=== PATIENT | male | born 1940 | race Caucasian/White ===

== ENCOUNTER 2016-07-15 17:53 | Inpatient (IN) | payer MEDICARE ==
[~2016-07-15] VITALS: Ht 180.3 cm; Wt 124.0 kg
[2016-07-15] VITALS (7 sets, daily range): BP systolic 125–159; BP diastolic 78–103; PULSE 121–140; RESP 16–22; TEMP 97.9; O2SAT 88–96
[~2016-07-15 17:53] MED LIST: AMIO200T PO; APIX5TAB PO; BUME1TAB26 PO; CENTTAB PO; METO25TA6 PO; OXYGENTANK NAS.CANULA; PRAV40TA2 PO; TAMS0.4C4 PO; ZOLP5TAB3 PO; ZOVI400T PO
[2016-07-15] MEDS ORDERED: SODIUM CHLORIDE 0.9% FLUSH 5 ML FLUSH IVF PRN ×2 (18:15→20:30)
[2016-07-15] MEDS ORDERED: DILTIAZEM HCL 25 MG/5 ML VIAL IV ONE (18:15)
--- NOTE | 2016-07-15 18:24 | PD ---
HPI Chief Complaint: GI Complaint Time Seen by Provider: 18:06 Travel History International Travel<30 days: No Contact w/Intl Traveler<30days: No Traveled to known affect area: No History of Present Illness HPI 75yo M with PMH of afib on eliquis and metoprolol, CHF, lymphoma on chemotherapy (follows with Dr. Moncada), HTN, HLD, BPH presents to the ED with c/o abdominal pain for about 3 days. Pt points to periumbilical region, states it is constant. Pt has not had bowel movement for 3 days. Denies any fever, cough , chest pain, sob, n/v. As per EVAC, pt is hypoxic on RA. PFSH Past Medical History Hx Anticoagulant Therapy: Yes Arthritis: Yes Anxiety: No Depression: No Heart Rhythm Problems: No Cancer: Yes (LYMPHOMA currently on chemo) Cardiovascular Problems: Yes High Cholesterol: Yes Chemotherapy: Yes (t//) Chest Pain: Yes (earlier today) Congestive Heart Failure: Yes Diminished Hearing: No Endocrine: No Gastrointestinal Disorders: Yes (Upper gi discomfort on admission) Genitourinary: No Hypertension: Yes Immune Disorder: Yes (lymphoma ca on chemo now) Implanted Vascular Access Dvce: Yes Musculoskeletal: No Neurologic: No Psychiatric: No Reproductive: Yes (chemo for prostrate ca t//) Respiratory: Yes Sleep Apnea: Yes (cpap at hs at home) PNEUMOCCOCAL Vaccine (Year): 1 Past Surgical History Abdominal Surgery: No Body Medical Devices: RAQUEL EYE LENS Cardiac Surgery: No Ear Surgery: No Endocrine Surgery: No Eye Surgery: Yes (BILATERAL CATARACTS) Genitourinary Surgery: Yes (VASCETOMY) Neurologic Surgery: No Oral Surgery: No Pacemaker: No Thoracic Surgery: No Other Surgery: Yes ("really young" 2006 hip replacement L) Social History Alcohol Use: No Tobacco Use: No Substance Use: No Allergies-Medications (Allergen,Severity, Reaction): Coded Allergies: No Known Allergies (Verified , 07/15/16) Reported Meds & Prescriptions Reported Meds & Active Scripts Active Amiodarone (Amiodarone HCl) 200 Mg Tab 200 Mg PO BID Oxygen tank (Oxygen) 1 Ea Tank 2 Liter MAXIME.CANULA CONTINUOUS Oxygen Concentrator Portable Gaseous 2 L/min via Nasal Cannula Continuous For 99 months Reported Zolpidem (Zolpidem Tartrate) 5 Mg Tab 5 Mg PO HS Tamsulosin (Tamsulosin HCl) 0.4 Mg Cap 0.4 Mg PO HS Pravastatin 40 Mg Tab 40 Mg PO HS Metoprolol Succinate ER 24 HR (Metoprolol Succinate) 25 Mg Tab 25 Mg PO DAILY Eliquis (Apixaban) 5 Mg Tab 5 Mg PO BID Centrum Silver (Multiple Vitamins W/ Minerals) 1 Tab 1 Tab PO DAILY Bumex (Bumetanide) 1 Mg Tab 1 Mg PO DAILY Zovirax (Acyclovir) 400 Mg Tab 400 Mg PO BID Review of Systems Except as stated in HPI: all other systems reviewed are Neg Physical Exam Narrative GENERAL: 75yo M in mild distress. SKIN: Warm and dry. HEAD: Atraumatic. Normocephalic. EYES: Pupils equal and round. No scleral icterus. No injection or drainage. ENT: No nasal bleeding or discharge. Mucous membranes pink and moist. NECK: Trachea midline. No JVD. CARDIOVASCULAR: Tachycardic, irregular. RESPIRATORY: + accessory muscle use. Breath sounds equal bilaterally. GASTROINTESTINAL: Abdomen soft, +RUQ ttp. No rebound tenderness or guarding. MUSCULOSKELETAL: No obvious deformities. No clubbing. No cyanosis. +Bilateral lower ext edema. Left hip: Unable to lift left leg from hip. Pt had history of hip replacement on left before. DP 2+ bilaterally. NEUROLOGICAL: Awake and alert. No obvious cranial nerve deficits. Motor grossly within normal limits. Normal speech. PSYCHIATRIC: Appropriate mood and affect; insight and judgment normal. Data Data Last Documented VS Vital Signs Date Time Temp Pulse Resp B/P Pulse Ox O2 Delivery O2 Flow Rate FiO2 07/15/16 20:00 126 20 140/95 96 Nasal Cannula 4 07/15/16 17:58 97.9 Orders Basic Metabolic Panel (Bmp) (07/15/16 18:09) Complete Blood Count With Diff (07/15/16 18:09) Lipase (07/15/16 18:09) Lactic Acid (07/15/16 18:09) Prothrombin Time / Inr (Pt) (07/15/16 18:09) Act Partial Throm Time (Ptt) (07/15/16 18:09) Urinalysis - C+S If Indicated (07/15/16 18:09) Ct Abd/Pel W Iv Contrast(Rout) (07/15/16 18:09) Iv Access Insert/Monitor (07/15/16 18:09) Ecg Monitoring (07/15/16 18:09) Oximetry (07/15/16 18:09) Sodium Chloride 0.9% Flush (Ns Flush) (07/15/16 18:15) Diltiazem Inj (Cardizem Inj) (07/15/16 18:15) Metoprolol Tartrate Inj (Lopressor Inj) (07/15/16 18:45) Hip, Uni(Ap&Lat) W Ap Pelvis (07/15/16 ) B-Type Natriuretic Peptide (07/15/16 18:51) Hepatic Functional Panel (07/15/16 19:01) Chest, Single Ap (07/15/16 ) Troponin I (07/15/16 19:25) Iohexol 350 Inj (Omnipaque 350 Inj) (07/15/16 19:35) Arterial Blood Gas (Abg) (07/15/16 ) Ct Brain W/O Iv Contrast(Rout) (07/15/16 19:52) Sodium Chlor 0.9% 250 Ml Inj (Ns 250 Ml (07/15/16 20:00) Ceftriaxone Inj (Rocephin Inj) (07/15/16 20:30) Azithromycin Inj (Zithromax Inj) (07/15/16 20:30) Diltiazem Inj (Cardizem Inj) (07/15/16 20:30) Sodium Chloride 0.9% Flush (Ns Flush) (07/15/16 20:30) Aspirin Chew (Aspirin Chew) (07/15/16 20:30) Nitroglycerin 2% Oint (Nitroglycerin 2% (07/15/16 20:30) Admit Order (Ed Use Only) (07/15/16 20:52) Labs Laboratory Tests Test 07/15/16 07/15/16 07/15/16 03:00 18:22 19:50 Urine Color YELLOW Urine Turbidity CLEAR Urine pH 6.0 Urine Specific [place] GREATER THAN 1.050 Urine Protein 100 mg/dL Urine Glucose (UA) NEG mg/dL Urine Ketones 10 mg/dL Urine Occult Blood MOD Urine Nitrite NEG Urine Bilirubin NEG Urine Urobilinogen 4.0 MG/DL Urine Leukocyte Esterase NEG Urine RBC 9 /hpf Urine WBC 7 /hpf Urine Squamous Epithelial <1 /hpf Cells Urine Hyaline Casts 4 /lpf Urine Mucus FEW /lpf Microscopic Urinalysis Comment CULT NOT INDICATED White Blood Count 13.7 TH/MM3 Red Blood Count 4.54 MIL/MM3 Hemoglobin 13.6 GM/DL Hematocrit 41.4 % Mean Corpuscular Volume 91.2 FL Mean Corpuscular Hemoglobin 29.9 PG Mean Corpuscular Hemoglobin 32.8 % Concent Red Cell Distribution Width 15.2 % Platelet Count 120 TH/MM3 Mean Platelet Volume 9.7 FL Neutrophils (%) (Auto) 82.0 % Lymphocytes (%) (Auto) 5.1 % Monocytes (%) (Auto) 12.8 % Eosinophils (%) (Auto) 0.0 % Basophils (%) (Auto) 0.1 % Neutrophils # (Auto) 11.2 TH/MM3 Lymphocytes # (Auto) 0.7 TH/MM3 Monocytes # (Auto) 1.7 TH/MM3 Eosinophils # (Auto) 0.0 TH/MM3 Basophils # (Auto) 0.0 TH/MM3 CBC Comment DIFF FINAL Differential Comment Prothrombin Time 13.3 SEC Prothromb Time International 1.2 RATIO Ratio Activated Partial 32.1 SEC Thromboplast Time Sodium Level 140 MEQ/L Potassium Level 3.4 MEQ/L Chloride Level 102 MEQ/L Carbon Dioxide Level 26.9 MEQ/L Anion Gap 11 MEQ/L Blood Urea Nitrogen 15 MG/DL Creatinine 0.95 MG/DL Estimat Glomerular Filtration 77 ML/MIN Rate Random Glucose 113 MG/DL Lactic Acid Level 1.7 mmol/L Calcium Level 8.4 MG/DL Total Bilirubin 1.1 MG/DL Direct Bilirubin 0.4 MG/DL Indirect Bilirubin 0.7 MG/DL Aspartate Amino Transf 29 U/L (AST/SGOT) Alanine Aminotransferase 22 U/L (ALT/SGPT) Alkaline Phosphatase 85 U/L Troponin I 0.02 NG/ML B-Type Natriuretic Peptide 205 PG/ML Total Protein 6.7 GM/DL Albumin 2.2 GM/DL Lipase 114 U/L Blood Gas Puncture Site RT RADIAL Blood Gas Patient Temperature 98.6 Blood Gas HCO3 26 mmol/L Blood Gas Base Excess 2.5 mmol/L Blood Gas Oxygen Saturation 88 % Arterial Blood pH 7.45 Arterial Blood Partial 38 mmHg Pressure CO2 Arterial Blood Partial 58 mmHG Pressure O2 Arterial Blood Oxygen Content 17.0 Vol % Arterial Blood 2.3 % Carboxyhemoglobin Arterial Blood Methemoglobin 2.2 % Blood Gas Hemoglobin 13.7 G/DL Oxygen Delivery Device NASAL CANNULA Blood Gas Liter Flow 4 L/M [facility] Medical Decision Making Medical Screen Exam Complete: Yes Emergency Medical Condition: Yes Interpretation(s) EKG: Afib with RVR 142bpm. Normal axis. Q wave V1, V2. Differential Diagnosis Abd pain: Cholecystitis vs. pancreatitis vs. mesenteric ischemia vs. constipation vs. colitis vs. UTI vs. obstruction Hypoxemia: Afib vs. PNA vs. CHF exacerbation Narrative Course 75yo M with abdominal pain and no BM for 3 days. Pt has been noncompliant with his medications for 3 days. He also states he has frequent falls but denies any LOC and is a poor historian. Pt is in afib RVR so cardizem 20mg IV initially given. BP stable. HR came down to 110 but did not last long. Pt is on metoprolol at home and has CHF so will give lopressor 2.5mg IV instead. Labs reviewed, mild leukocytosis at 13.7. Lactic acid 1.7. Lipase 114. Rest of labs pending. Sign out to next to follow up rest of results, imaging and admit. Diagnosis Primary Impression: Atrial fibrillation with RVR Admitting Information Admitting Physician Requests: Admit Kirsten Mckoy DO Jul 15, 2016 18:24
[2016-07-15] MEDS ORDERED: METOPROLOL TARTRATE 5 MG/5 ML VIAL IV PUSH ONE (18:45)
[2016-07-15 18:46] LABS: AUTOMATED NEUTROPHIL # 11.2 TH/MM3 (1.8-7.7); BASOPHIL % 0.1 % (0.0-2.0); HEMATOCRIT 41.4 % (39.0-51.0); HEMO FLAGS DIFF FINAL; LYMPH % 5.1 % (9.0-44.0); LYMPHOCYTE # 0.7 TH/MM3 (1.0-4.8); MEAN CELL VOLUME 91.2 FL (80.0-100.0); MEAN CORPUSCULAR HEMOGLOBIN 29.9 PG (27.0-34.0); MEAN CORPUSCULAR HGB CONC 32.8 % (32.0-36.0); MONO % 12.8 % (0.0-8.0); PLATELET COUNT 120 TH/MM3 (150-450); RED BLOOD COUNT 4.54 MIL/MM3 (4.50-5.90); RED CELL DISTRIBUTION WIDTH 15.2 % (11.6-17.2); WHITE BLOOD COUNT 13.7 TH/MM3 (4.0-11.0)
[2016-07-15 19:02] LABS: APTT (PATIENT) 32.1 SEC (24.3-30.1); INTERNATIONAL NORMALIZED RATIO 1.2 RATIO; PROTHROMBIN TIME - PATIENT 13.3 SEC (9.8-11.6)
[2016-07-15 19:06] LABS: BICARBONATE 26.9 MEQ/L (21.0-32.0); POTASSIUM 3.4 MEQ/L (3.5-5.1)
[2016-07-15] MEDS ORDERED: IOHEXOL 350 MG/ML 10 ML VIAL (for RAD DIAG) IV ONE (19:35)
--- NOTE | 2016-07-15 19:42 | PD ---
Physical Exam Narrative General: The patient is well-developed well-nourished male in no acute distress. Head and Neck exam: Head is normocephalic atraumatic. Eyes: Pupils are equal round and reactive to light. Nose: Midline septum with pink mucous membranes Mouth: Dentition unremarkable. Moist mucus membranes. Posterior oropharynx is not erythematous. No tonsillar hypertrophy. Uvula midline. Airway patent. Neck: No palpable lymphadenopathy. No nuchal rigidity. No thyromegaly. Cardiovascular: Irregularly irregular with a rate in the 120s without murmurs, gallops, or rubs. He has intermittent pulse deficit to his radial artery on simultaneous auscultation and palpation consistent with his history of A. fib. Lungs: Clear to auscultation on the right, however on the left he has crackles audible. The patient has an older appearing bruise in place in the anterior upper left chest. There is no crepitus or step-off. No tenderness on palpation. No flail segment. Abdomen: Soft, without tenderness to palpation in all 4 quadrants of the abdomen. No guarding, rebound, or rigidity. Normal bowel sounds are audible Extremities: No clubbing, cyanosis, or edema. 2+ pulses in all 4 extremities. No calf tenderness on palpation. Neurologic Exam: Grossly nonfocal. Data Data Last Documented VS Vital Signs Date Time Temp Pulse Resp B/P Pulse Ox O2 Delivery O2 Flow Rate FiO2 07/15/16 20:00 126 20 140/95 96 Nasal Cannula 4 07/15/16 17:58 97.9 Orders Basic Metabolic Panel (Bmp) (07/15/16 18:09) Complete Blood Count With Diff (07/15/16 18:09) Lipase (07/15/16 18:09) Lactic Acid (07/15/16 18:09) Prothrombin Time / Inr (Pt) (07/15/16 18:09) Act Partial Throm Time (Ptt) (07/15/16 18:09) Urinalysis - C+S If Indicated (07/15/16 18:09) Ct Abd/Pel W Iv Contrast(Rout) (07/15/16 18:09) Iv Access Insert/Monitor (07/15/16 18:09) Ecg Monitoring (07/15/16 18:09) Oximetry (07/15/16 18:09) Sodium Chloride 0.9% Flush (Ns Flush) (07/15/16 18:15) Diltiazem Inj (Cardizem Inj) (07/15/16 18:15) Metoprolol Tartrate Inj (Lopressor Inj) (07/15/16 18:45) Hip, Uni(Ap&Lat) W Ap Pelvis (07/15/16 ) B-Type Natriuretic Peptide (07/15/16 18:51) Hepatic Functional Panel (07/15/16 19:01) Chest, Single Ap (07/15/16 ) Troponin I (07/15/16 19:25) Iohexol 350 Inj (Omnipaque 350 Inj) (07/15/16 19:35) Arterial Blood Gas (Abg) (07/15/16 ) Ct Brain W/O Iv Contrast(Rout) (07/15/16 19:52) Sodium Chlor 0.9% 250 Ml Inj (Ns 250 Ml (07/15/16 20:00) Ceftriaxone Inj (Rocephin Inj) (07/15/16 20:30) Azithromycin Inj (Zithromax Inj) (07/15/16 20:30) Diltiazem Inj (Cardizem Inj) (07/15/16 20:30) Sodium Chloride 0.9% Flush (Ns Flush) (07/15/16 20:30) Aspirin Chew (Aspirin Chew) (07/15/16 20:30) Nitroglycerin 2% Oint (Nitroglycerin 2% (07/15/16 20:30) Admit Order (Ed Use Only) (07/15/16 20:52) Labs Laboratory Tests Test 07/15/16 07/15/16 18:22 19:50 White Blood Count 13.7 TH/MM3 Red Blood Count 4.54 MIL/MM3 Hemoglobin 13.6 GM/DL Hematocrit 41.4 % Mean Corpuscular Volume 91.2 FL Mean Corpuscular Hemoglobin 29.9 PG Mean Corpuscular Hemoglobin 32.8 % Concent Red Cell Distribution Width 15.2 % Platelet Count 120 TH/MM3 Mean Platelet Volume 9.7 FL Neutrophils (%) (Auto) 82.0 % Lymphocytes (%) (Auto) 5.1 % Monocytes (%) (Auto) 12.8 % Eosinophils (%) (Auto) 0.0 % Basophils (%) (Auto) 0.1 % Neutrophils # (Auto) 11.2 TH/MM3 Lymphocytes # (Auto) 0.7 TH/MM3 Monocytes # (Auto) 1.7 TH/MM3 Eosinophils # (Auto) 0.0 TH/MM3 Basophils # (Auto) 0.0 TH/MM3 CBC Comment DIFF FINAL Differential Comment Prothrombin Time 13.3 SEC Prothromb Time International 1.2 RATIO Ratio Activated Partial 32.1 SEC Thromboplast Time Sodium Level 140 MEQ/L Potassium Level 3.4 MEQ/L Chloride Level 102 MEQ/L Carbon Dioxide Level 26.9 MEQ/L Anion Gap 11 MEQ/L Blood Urea Nitrogen 15 MG/DL Creatinine 0.95 MG/DL Estimat Glomerular Filtration 77 ML/MIN Rate Random Glucose 113 MG/DL Lactic Acid Level 1.7 mmol/L Calcium Level 8.4 MG/DL Total Bilirubin 1.1 MG/DL Direct Bilirubin 0.4 MG/DL Indirect Bilirubin 0.7 MG/DL Aspartate Amino Transf 29 U/L (AST/SGOT) Alanine Aminotransferase 22 U/L (ALT/SGPT) Alkaline Phosphatase 85 U/L Troponin I 0.02 NG/ML B-Type Natriuretic Peptide 205 PG/ML Total Protein 6.7 GM/DL Albumin 2.2 GM/DL Lipase 114 U/L Blood Gas Puncture Site RT RADIAL Blood Gas Patient Temperature 98.6 Blood Gas HCO3 26 mmol/L Blood Gas Base Excess 2.5 mmol/L Blood Gas Oxygen Saturation 88 % Arterial Blood pH 7.45 Arterial Blood Partial 38 mmHg Pressure CO2 Arterial Blood Partial 58 mmHG Pressure O2 Arterial Blood Oxygen Content 17.0 Vol % Arterial Blood 2.3 % Carboxyhemoglobin Arterial Blood Methemoglobin 2.2 % Blood Gas Hemoglobin 13.7 G/DL Oxygen Delivery Device NASAL CANNULA Blood Gas Liter Flow 4 L/M [facility] Medical Record Reviewed: Yes Supervised Visit with SHARON: No Interpretation(s) Last Impressions Head CT 07/15/161951 Signed Impressions: Service Date/Time: Friday, July 15, 2016 20:31 - CONCLUSION: 1. No acute intracranial abnormalities. Moderate ischemic changes in the periventricular white matter. Ti Cornejo MD Abdomen/Pelvis CT 07/15/[id number] Signed Impressions: Service Date/Time: Friday, July 15, 2016 19:25 - CONCLUSION: 1. Retroperitoneal, mesenteric and pelvic adenopathy as above. There is also extensive stranding of fat in the retroperitoneum extending into the pelvis which can be seen with lymphoma. Retroperitoneal hemorrhage considered less likely. Aorta is atherosclerotic but intact without aneurysm. 2. Adenopathy is a new finding since the 2010 exam. 3. Loculated fluid and pleural thickening left lung base. 4. Probable gallstones in gallbladder. Small pericardial effusion. 5. Previous left hip replacement. Ti Cornejo MD Hip and Pelvis X-Ray 07/15/16 0000 Signed Impressions: Service Date/Time: Friday, July 15, 2016 19:19 - CONCLUSION: 1. Previous total left hip replacement. No acute findings. Ti Cornejo MD Chest X-Ray 07/15/16 0000 Signed Impressions: Service Date/Time: Friday, July 15, 2016 19:11 - CONCLUSION: 1. There is new airspace consolidation in the left lung especially left perihilar region and left base compared with May 2016. Right lung remains relatively clear. Differential diagnosis includes aspiration and pneumonia. Ti Cornejo MD Differential Diagnosis A. fib with RVR, versus sepsis, versus COPD exacerbation, versus congestive heart failure exacerbation, versus electrolyte abnormality Narrative Course During the course of the patients emergency department visit, the patients history, examination, and differential diagnosis were reviewed with the patient. The patient had IV access obtained and blood work sent for analysis. The patient was placed on a executive administrator with oximetry and blood pressure monitoring. The patient had an EKG done that confirmed atrial fibrillation with RVR. The patient was initially seen by Dr. Mckoy. The case was turned over to me at the conclusion of her shift. Chest x-ray, pelvic x-ray and left hip x- ray, CT scan of the abdomen and pelvis has been ordered. The patient was provided by Dr. Mckoy, 20 g of diltiazem, however the patient had minimal response, therefore she gave metoprolol 2.5 mg IV. The patients laboratory studies were reviewed and remarkable for a white count of 13.7, hemoglobin 13.6, platelets 120 with 82 neutrophils, lymphocytes 5.1, monocytes 12.8. Basic metabolic profile is remarkable for potassium of 3.4, glucose 113, lactic acid 1.7, lipase 117, INR 1.2. Lactic acid is 1.7, total bilirubin 1.1, direct bilirubin 0.4, LFTs otherwise unremarkable. BNP is 205, Troponin I 0.02. Radiology studies were reviewed and remarkable for a chest x-ray showed a left- sided lung infiltrate. CT scan of the brain shows no acute abnormality. Hip x- ray and pelvis x-ray shows a left hip replacement, no other acute abnormality. CT scan of the abdomen and pelvis shows retroperitoneal, mesenteric, pelvic adenopathy consistent with his prior history of lymphoma. The patient's heart rate continued be elevated and the patient was started on a Cardizem drip. The patient reported having chest pain and was given aspirin 162 mg by mouth 1, nitroglycerin 1 inch to the chest wall. Repeat EKG shows atrial fibrillation, no other acute abnormality. Given the patient's infiltrate on chest x-ray the patient was started on Rocephin 1 g IV, 8 azithromycin 500 mg IV. Blood cultures 2 were drawn. The patients results were discussed with the patient, including the plan of care. I explained that further testing and/ or monitoring is indicated based on the patients history, examination, and/ or laboratory findings. Therefore, I recommended admission for additional evaluation. The patient expressed understanding and was agreeable with this plan. The patient was admitted to the hospital in guarded condition and [facility] Critical Care Narrative Aggregate critical care time was 35 minutes. Time to perform other separately billable procedures was not included in the critical care time. My time did not include minutes spent treating any other patients simultaneously or on activities that did not directly contribute to the patient's treatment. The services I provided to this patient were to treat and/or prevent clinically significant deterioration that could result in: Cardiovascular collapse, versus respiratory failure I provided critical care services requiring my management, as noted below: Chart data review, documentation time, medication orders and management, vital sign assessments/reviewing monitor data, ordering and reviewing lab tests, ordering and interpreting/reviewing x-rays and diagnostic studies, care of the patient and discussion of the patient with the admitting physicians. Sepsis Criteria SIRS Criteria (2 or more): Heart rate over 90, RR > 20 or PaCO2 < 32, WBC > 33147, < 4000 or > 10% bands Diagnosis Primary Impression: Atrial fibrillation with RVR Additional Impressions: Hypoxemia Abdominal pain Qualified Code: R10.33 - Periumbilical abdominal pain CAP (community acquired pneumonia) Admitting Information Admitting Physician Requests: Admit Mini Tijerina MD Jul 15, 2016 19:41
[2016-07-15 19:46] LABS: INDIRECT BILIRUBIN 0.7 MG/DL (0.0-0.8); TOTAL BILIRUBIN ADULT 1.1 MG/DL (0.2-1.0)
[2016-07-15] MEDS ORDERED: SODIUM CHLOR 0.9% 250 ML INJ 250 ML IV ONE (20:00)
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
--- NOTE | 2016-07-15 20:15 | RADRPT ---
EXAM DATE/TIME: 07/15/2016 19:25 [facility] COMPARISON: CT ABDOMEN & PELVIS W/O CONTRAST, May 28, 2011, 19:06. INDICATIONS : Diffuse abdomen pain for one month. IV CONTRAST: 70 cc Omnipaque 350 (iohexol) IV ORAL CONTRAST: No oral contrast ingested. RADIATION DOSE: 14.68 CTDIvol (mGy) MEDICAL HISTORY : Lymphoma. Hypertension. SURGICAL HISTORY : None. ENCOUNTER: Initial ACUITY: 1 month PAIN SCALE: 5/10 LOCATION: Bilateral abdomen TECHNIQUE: Volumetric scanning of the abdomen and pelvis was performed. Using automated exposure control and ad justment of the mA and/or kV according to patient size, radiation dose was kept as low as reasonably achievable to obtain optimal diagnostic quality images. FINDINGS: Comparison is 2010. There history of lymphoma. There is a small left effusion which appears to be loc ulated. There is left-sided pleural thickening and some atelectasis at the left base. No acute findings in the liver or spleen. Probable sludge or gallstones within the gallbladder. No ac [place] findings in the adrenals and kidneys. Right renal cyst increased in size from 2011. The retroperitoneum is abnormal. There are multiple enlarged lymph nodes in the periaortic and perica kobi region measuring up to about 1.9 cm in diameter. There is also extensive retroperitoneal strandin g of fat which can be a finding with lymphoma. Retroperitoneal hemorrhage considered less likely. Aor ta appears intact without aneurysm. There is atherosclerotic change in the aorta and branches. Within the pelvis they are mildly enlarged external iliac lymph nodes bilaterally and mildly prominen t right inguinal lymph nodes. No bowel obstruction. No free air. Colonic diverticula noted. Small fat containing umbilical hernia. CONCLUSION: 1. Retroperitoneal, mesenteric and pelvic adenopathy as above. There is also extensive stranding of f at in the retroperitoneum extending into the pelvis which can be seen with lymphoma. Retroperitoneal hemorrhage considered less likely. Aorta is atherosclerotic but intact without aneurysm. 2. Adenopathy is a new finding since the 2010 exam. 3. Loculated fluid and pleural thickening left lung base. 4. Probable gallstones in gallbladder. Small pericardial effusion. 5. Previous left hip replacement. Ti Cornejo MD on July 15, 2016 at 20:06 Board Certified Radiologist. This report was verified electronically.
[2016-07-15] MEDS ORDERED: AZITHROMYCIN INJ 500 MG in SODIUM CHLOR 0.9% 250 ML INJ 250 ML IV ONE (20:30)
[2016-07-15] MEDS ORDERED: ASPIRIN 81 MG CHEW TAB CHEW ONE (20:30)
[2016-07-15] MEDS ORDERED: cefTRIAXone INJ 1,000 MG in SODIUM CHLORIDE 0.9% INJ 100 ML IV ONE (20:30)
[2016-07-15] MEDS ORDERED: NITROGLYCERIN 2% OINT 1 GM PACKET TOPICAL ONE (20:30)
[2016-07-15] MEDS ORDERED: NALOXONE HCL 0.4 MG/ML AMP IV PRN (21:00)
[2016-07-15] MEDS ORDERED: SODIUM CHLORIDE 0.9% FLUSH 5 ML FLUSH FLUSH PRN (21:00)
--- NOTE | 2016-07-15 21:04 | RADRPT ---
EXAM DATE/TIME: 07/15/2016 20:31 [facility] COMPARISON: No previous studies available for comparison. INDICATIONS : Multiple falls, possible head trauma. RADIATION DOSE: 44.37 CTDIvol (mGy) MEDICAL HISTORY : Lymphoma. Hypertension. SURGICAL HISTORY : None. ENCOUNTER: Initial ACUITY: 1 day PAIN SCALE: 3/10 LOCATION: Bilateral head TECHNIQUE: Multiple contiguous axial images were obtained of the head. Using automated exposure control and adj ustment of the mA and/or kV according to patient size, radiation dose was kept as low as reasonably a chievable to obtain optimal diagnostic quality images. FINDINGS: CEREBRUM: The ventricles are normal for age. No evidence of midline shift, mass lesion, hemorrhage or acute in farction. No extra-axial fluid collections are seen. POSTERIOR FOSSA: The cerebellum and brainstem are intact. The 4th ventricle is midline. The cerebellopontine angle i s unremarkable. EXTRACRANIAL: The visualized portion of the orbits is intact. SKULL: The calvaria is intact. No evidence of skull fracture. CONCLUSION: 1. No acute intracranial abnormalities. Moderate ischemic changes in the periventricular white matter . Ti Cornejo MD on July 15, 2016 at 21:01 Board Certified Radiologist. This report was verified electronically.
[2016-07-15] MEDS: SODIUM CHLORIDE 0.9% FLUSH 5 ML FLUSH FLUSH SCH (21:19)
[2016-07-15] MEDS: DILTIAZEM INJ 125 MG in SODIUM CHLORIDE 0.9% INJ 100 ML IV SCH (21:31)
[2016-07-15 21:50] LABS: BLOOD GAS BASE EXCESS 2.5 mmol/L (-2-2); BLOOD GAS CARBOXYHEMOGLOBIN 2.3 % (0-4); BLOOD GAS HCO3 26 mmol/L (22-26); BLOOD GAS METHEMOGLOBIN 2.2 % (0-2); BLOOD GAS O2 HGB SATURATION 88 % (90-100); BLOOD GAS PCO2 38 mmHg (38-42); BLOOD GAS PO2 58 mmHG (61-120); BLOOD GAS TOTAL HGB 13.7 G/DL (12.0-16.0); CRITICAL VALUE YES; TEMP CORR TO 98.6
[2016-07-15 21:51] LABS: DRAW SITE RT RADIAL; LITER FLOW 4 L/M; NUMBER OF ARTERIAL PUNCTURES 1; OXYGEN DEVICE NASAL CANNULA; STAT YES; ULNAR PULSE PRESENT
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
[2016-07-16] VITALS (15 sets, daily range): BP systolic 104–138; BP diastolic 59–77; PULSE 100–117; RESP 13–22; TEMP 97.3–98.5; O2SAT 90–96
[2016-07-16 01:29] LABS: CKMB 0.6 NG/ML (0.5-3.6)
[2016-07-16] MEDS ORDERED: ZOLPIDEM TARTRATE 5 MG TAB PO ONE (03:15)
[2016-07-16 03:17] LABS: BLOOD, URINE MOD (NEG); COMMENT (UR) CULT NOT INDICATED; CULTURE IF INDICATED CULT NOT INDICATED; GLUCOSE,URINE NEG (NEG); HYALINE CAST, URINE 4 /lpf (RARE); KETONE, URINE 10 mg/dL (NEG); MUCUS URINE FEW /lpf (OCC); NITRITE,URINE NEG (NEG); SQUAMOUS EPITHELIAL CELL URINE <1 /hpf (0-5); URINE COLOR YELLOW (YELLW/STRAW)
[2016-07-16 04:28] LABS: AUTOMATED NEUTROPHIL # 10.7 TH/MM3 (1.8-7.7); BASOPHIL % 0.3 % (0.0-2.0); HEMATOCRIT 36.5 % (39.0-51.0); HEMO FLAGS DIFF FINAL; LYMPH % 4.9 % (9.0-44.0); LYMPHOCYTE # 0.6 TH/MM3 (1.0-4.8); MEAN CELL VOLUME 89.6 FL (80.0-100.0); MEAN CORPUSCULAR HEMOGLOBIN 30.3 PG (27.0-34.0); MEAN CORPUSCULAR HGB CONC 33.9 % (32.0-36.0); MONO % 12.9 % (0.0-8.0); NEUT % 81.9 % (16.0-70.0); PLATELET COUNT 109 TH/MM3 (150-450); RED BLOOD COUNT 4.07 MIL/MM3 (4.50-5.90); RED CELL DISTRIBUTION WIDTH 14.9 % (11.6-17.2); WHITE BLOOD COUNT 13.1 TH/MM3 (4.0-11.0)
[2016-07-16 04:49] LABS: BICARBONATE 26.9 MEQ/L (21.0-32.0); POTASSIUM 3.5 MEQ/L (3.5-5.1)
[2016-07-16] MEDS: DILTIAZEM INJ 125 MG in SODIUM CHLORIDE 0.9% INJ 100 ML IV SCH (06:22)
[2016-07-16] MEDS: SODIUM CHLORIDE 0.9% FLUSH 5 ML FLUSH FLUSH SCH ×2 (08:37→22:14)
[2016-07-16] MEDS: AMIODARONE 200 MG TAB PO SCH ×2 (08:46→22:14)
[2016-07-16] MEDS: BUMETANIDE 1 MG TAB PO SCH (08:46)
[2016-07-16] MEDS: METOPROLOL SUCCINATE 25 MG EXTENDED RELEASE TAB PO SCH (08:46)
[2016-07-16] MEDS: APIXABAN 5 MG TABLET PO SCH ×2 (08:46→22:15)
[2016-07-16] MEDS: CEFEPIME INJ 2,000 MG in SODIUM CHLORIDE 0.9% INJ 100 ML IV SCH ×2 (08:59→15:33)
[2016-07-16] MEDS ORDERED: AZITHROMYCIN 250 MG TAB PO SCH (09:00)
[2016-07-16] MEDS: ACYCLOVIR 200 MG CAP PO SCH ×2 (09:27→22:14)
--- NOTE | 2016-07-16 13:39 | EKG ---
Date Performed: 07/15/2016 Time Performed: 20:14:04 PTAGE: 75 years EKG: ATRIAL FIBRILLATION WITH RAPID VENTRICULAR RESPONSE MODERATE INTRAVENTRICULAR CONDUCTION DE LAY ABNORMAL RHYTHM ECG Compared to prior tracing no significant change PREVIOUS TRACING : 07/15/2016 18.03 DOCTOR: France Velazquez Interpretating Date/Time 07/16/2016 13:38:41
--- NOTE | 2016-07-16 13:39 | EKG ---
Date Performed: 07/16/2016 Time Performed: 00:23:53 PTAGE: 75 years EKG: ATRIAL FIBRILLATION WITH RAPID VENTRICULAR RESPONSE MODERATE INTRAVENTRICULAR CONDUCTION DE LAY ABNORMAL RHYTHM ECG Compared to prior tracing no significant change PREVIOUS TRACING : 07/15/2016 20.14 DOCTOR: France Velazquez Interpretating Date/Time 07/16/2016 13:38:51
--- NOTE | 2016-07-16 13:39 | EKG ---
Date Performed: 07/15/2016 Time Performed: 18:03:01 PTAGE: 75 years EKG: ATRIAL FIBRILLATION WITH RAPID VENTRICULAR RESPONSE NONSPECIFIC ST & T-WAVE ABNORMALITY ABN ORMAL ECG Compared to prior tracing no significant change PREVIOUS TRACING : 05/31/2016 07.29 DOCTOR: France Velazquez Interpretating Date/Time 07/16/2016 13:38:26
--- NOTE | 2016-07-16 13:52 | HHI.PR ---
Subjective Remarks Follow-up for pneumonia Patient says that breathing is better compared to when he came in, no chest pain or palpitations, denies fever. Still not short of breath. Coughing. Objective Vitals Vital Signs Date Time Temp Pulse Resp B/P Pulse Ox O2 Delivery O2 Flow Rate FiO2 07/16/16 11:50 102 16 129/68 93 Nasal Cannula 4 07/16/16 10:17 93 Nasal Cannula 4.00 07/16/16 08:47 100 13 122/66 90 Nasal Cannula 4 07/16/16 07:06 102 14 131/67 94 3 07/16/16 06:22 101 16 131/73 95 Nasal Cannula 3 07/16/16 03:01 105 16 138/75 96 Nasal Cannula 2 07/15/16 23:26 131 16 125/78 94 Nasal Cannula 2 07/15/16 22:54 122 20 145/82 92 Nasal Cannula 4 07/15/16 21:39 121 22 159/103 93 Nasal Cannula 4 07/15/16 21:00 93 Nasal Cannula 4.00 07/15/16 20:00 126 20 140/95 96 Nasal Cannula 4 07/15/16 18:18 88 Room Air 07/15/16 18:18 94 Nasal Cannula 4 07/15/16 17:58 97.9 140 22 136/85 91 I/O 07/15/16 07/15/16 07/15/16 07/16/16 07/16/16 07/16/16 07:00 15:00 23:00 07:00 15:00 23:00 Output Total 500 ml Balance -500 ml Output Urine Total 500 ml # Voids 1 1 Result Diagram: 07/16/1639907/16/16 0400 Objective Remarks In mild distress, wheezing. PERRL, pink conjunctiva without injection, anicteric Nose without bleeding, airway patent, oropharynx clear Supple neck, no masses or thyromegaly, trachea midline Borderline tachycardic, regular rhythm, no murmurs. Positive for wheezing bilaterally, no crackles. Normal bowel sounds, soft, non-tender, nondistended, no guarding. Extremities without clubbing, cyanosis, trace edema. No rash of generalized distribution. Skin is warm and dry. AAO x3, no cranial nerve deficits, moves all 4 extremities, no focal neurologic deficits Normal mood, appropriate affect A/P Problem List: (1) Sepsis due to pneumonia ICD Code: J18.9 Status: Acute (2) Lymphoma ICD Code: C85.90 Status: Chronic (3) Atrial fibrillation with RVR ICD Code: I48.91 Status: Acute (4) Hypoxemia ICD Code: R09.02 Status: Acute Assessment and Plan This is a 75-year-old male with history of atrial fibrillation and COPD, admitted for shortness of breath Shortness of breath secondary to pneumonia with sepsis-continue cefepime, received azithromycin, what azithromycin because of atrial fibrillation. Patient is immunocompromised, had chemotherapy 2 weeks ago. Atrial fibrillation with rapid ventricular response-likely secondary to sepsis, on Cardizem drip, start Cardizem orally. Discussed with RN. Wean from drip. Continue metoprolol, eliquis, amiodarone Hypertension-continue metoprolol, Cardizem as above. CHF-check BNP. Continue Bumex, does not appear to be in exacerbation, recheck BMP and BNP tomorrow. COPD-not in exacerbation, continue duo nebs, hold off on steroids for now, patient is oriented immunocompromised. Does not sound to be in exacerbation. Lymphomacurrently on chemotherapy. Last dose was 2 weeks ago. BPH-continue Flomax. DVT prophylaxis: On eliquis. Sera Eddy MD Jul 16, 2016 13:52
--- NOTE | 2016-07-16 14:50 | EKG ---
Date Performed: 07/16/2016 Time Performed: 05:55:55 PTAGE: 75 years EKG: ATRIAL FIBRILLATION MODERATE INTRAVENTRICULAR CONDUCTION DELAY ABNORMAL ECG Compared to the PREVIOUS TRACING , there has been improvement in the overall ST-T wave changes as the ra te has come under control but there is otherwise no significant change PREVIOUS TRACIN07/16/2016 0 0.23 DOCTOR: France Velazquez Interpretating Date/Time 07/16/2016 14:48:59
[2016-07-16 15:25] LABS: AUTOMATED NEUTROPHIL # 9.9 TH/MM3 (1.8-7.7); BASOPHIL % 0.2 % (0.0-2.0); HEMATOCRIT 36.6 % (39.0-51.0); HEMO FLAGS DIFF FINAL; LYMPH % 5.1 % (9.0-44.0); LYMPHOCYTE # 0.6 TH/MM3 (1.0-4.8); MEAN CELL VOLUME 90.5 FL (80.0-100.0); MEAN CORPUSCULAR HEMOGLOBIN 29.9 PG (27.0-34.0); MEAN CORPUSCULAR HGB CONC 33.1 % (32.0-36.0); MONO % 13.2 % (0.0-8.0); NEUT % 81.5 % (16.0-70.0); PLATELET COUNT 119 TH/MM3 (150-450); RED BLOOD COUNT 4.04 MIL/MM3 (4.50-5.90); RED CELL DISTRIBUTION WIDTH 15.1 % (11.6-17.2); WHITE BLOOD COUNT 12.2 TH/MM3 (4.0-11.0)
[2016-07-16] MEDS: RESP: ALBUTEROL 2.5 MG/IPRATROPIUM 0.5 MG NEB (SCH) NEB ×2 (17:08→19:31)
[2016-07-16] MEDS: DILTIAZEM HCL 60 MG TAB PO SCH (17:41)
[2016-07-16] MEDS ORDERED: cefTRIAXone INJ 1,000 MG in SODIUM CHLORIDE 0.9% INJ 100 ML IV SCH (21:00)
[2016-07-16] MEDS: ZOLPIDEM TARTRATE 5 MG TAB PO SCH (22:14)
[2016-07-16] MEDS: TAMSULOSIN HCL 0.4 MG CAP PO SCH (22:15)
[2016-07-16] MEDS: PRAVASTATIN SOD 40 MG TAB PO SCH (22:15)
[2016-07-17] VITALS (25 sets, daily range): BP systolic 104–131; BP diastolic 66–72; PULSE 80–117; RESP 20–24; TEMP 97.4–98.6; O2SAT 92–93
[2016-07-17] MEDS: CEFEPIME INJ 2,000 MG in SODIUM CHLORIDE 0.9% INJ 100 ML IV SCH ×3 (02:04→17:22)
[2016-07-17] MEDS: DILTIAZEM HCL 60 MG TAB PO SCH ×4 (02:04→17:41)
[2016-07-17 07:30] LABS: BICARBONATE 30.1 MEQ/L (21.0-32.0); POTASSIUM 3.4 MEQ/L (3.5-5.1)
[2016-07-17] MEDS: METOPROLOL SUCCINATE 25 MG EXTENDED RELEASE TAB PO SCH (08:28)
[2016-07-17] MEDS: AMIODARONE 200 MG TAB PO SCH ×2 (08:28→21:23)
[2016-07-17] MEDS: ACYCLOVIR 200 MG CAP PO SCH ×2 (08:28→21:23)
[2016-07-17] MEDS: APIXABAN 5 MG TABLET PO SCH ×2 (08:28→21:23)
[2016-07-17] MEDS: BUMETANIDE 1 MG TAB PO SCH (08:28)
[2016-07-17] MEDS: SODIUM CHLORIDE 0.9% FLUSH 5 ML FLUSH FLUSH SCH ×2 (08:29→21:23)
[2016-07-17] MEDS: DILTIAZEM INJ 125 MG in SODIUM CHLORIDE 0.9% INJ 100 ML IV SCH (08:38)
[2016-07-17] MEDS: RESP: ALBUTEROL 2.5 MG/IPRATROPIUM 0.5 MG NEB (SCH) NEB ×3 (08:49→21:25)
--- NOTE | 2016-07-17 13:39 | HHI.PR ---
Subjective Remarks Follow-up for atrial fibrillation and pneumonia Heart rate still in the 110s, off Cardizem drip. Patient denies any chest pain or palpitation. Still mildly short of breath but better than yesterday. No fever. Objective Vitals Vital Signs Date Time Temp Pulse Resp B/P Pulse Ox O2 Delivery O2 Flow Rate FiO2 07/17/16 13:05 104 07/17/16 12:03 108 07/17/16 11:20 98.3 86 22 112/67 93 07/17/16 11:20 81 07/17/16 10:17 93 07/17/16 09:04 98 07/17/16 08:50 92 Nasal Cannula 4.00 07/17/16 08:00 98.1 86 22 107/66 92 07/17/16 08:00 84 07/17/16 06:00 89 07/17/16 05:00 87 07/17/16 04:00 98 07/17/16 04:00 97.4 100 24 119/66 92 07/17/16 03:00 96 07/17/16 02:00 104 07/17/16 01:00 101 07/17/16 00:00 109 07/17/16 00:00 98.3 110 22 104/67 93 07/16/16 23:00 103 07/16/16 22:00 110 07/16/16 21:00 114 07/16/16 20:00 97.3 117 22 109/68 93 07/16/16 20:00 116 07/16/16 19:34 93 Nasal Cannula 4.00 07/16/16 19:00 114 07/16/16 18:30 98.5 109 18 104/59 95 07/16/16 17:33 109 20 117/77 93 Nasal Cannula 4 07/16/16 14:07 100 16 129/71 93 Nasal Cannula 4 I/O 07/16/16 07/16/16 07/16/16 07/17/16 07/17/16 07/17/16 07:00 15:00 23:00 07:00 15:00 23:00 Intake Total 240 ml Output Total 500 ml 250 ml 60 ml Balance -500 ml -250 ml 180 ml Intake Oral 240 ml Output Urine Total 500 ml 250 ml 60 ml # Voids 1 1 1 1 # Bowel Movements 0 Result Diagram: 07/16/16 1440 07/17/16 0523 Objective Remarks Pancho distress. PERRL, pink conjunctiva without injection, anicteric Nose without bleeding, airway patent, oropharynx clear Supple neck, no masses or thyromegaly, trachea midline Borderline tachycardic, regular rhythm, no murmurs. Wheezing better, no crackles or rhonchi. Normal bowel sounds, soft, non-tender, nondistended, no guarding. Extremities without clubbing, cyanosis, trace edema. No rash of generalized distribution. Skin is warm and dry. AAO x3, no cranial nerve deficits, moves all 4 extremities, no focal neurologic deficits Normal mood, appropriate affect A/P Problem List: (1) Sepsis due to pneumonia ICD Code: J18.9 Status: Acute (2) Lymphoma ICD Code: C85.90 Status: Chronic (3) Atrial fibrillation with RVR ICD Code: I48.91 Status: Acute (4) Hypoxemia ICD Code: R09.02 Status: Acute Assessment and Plan This is a 75-year-old male with history of atrial fibrillation and COPD, admitted for shortness of breath Shortness of breath secondary to pneumonia with sepsis-continue cefepime, received azithromycin, hold off on azithromycin because of atrial fibrillation. Patient is immunocompromised, had chemotherapy 2 weeks ago. Leukocytosis is better. Atrial fibrillation with rapid ventricular response-likely secondary to sepsis, off Cardizem drip, increase Cardizem to 90 mg every 6 hours. Continue metoprolol, eliquis, amiodarone Hypertension-continue metoprolol, Cardizem as above. CHF-check BNP. Continue Bumex, does not appear to be in exacerbation, BMP and BNP are stable. COPD-not in exacerbation, continue duo nebs, hold off on steroids for now, patient is oriented immunocompromised. Does not sound to be in exacerbation. Lymphomacurrently on chemotherapy. Last dose was 2 weeks ago. BPH-continue Flomax. Hypokalemia-replaced. DVT prophylaxis: On eliquis. Sera Eddy MD Jul 17, 2016 13:39
[2016-07-17] MEDS ORDERED: POTASSIUM CL 40 MEQ/30 ML LIQ UDC PO ONE (13:45)
[2016-07-17] MEDS: PRAVASTATIN SOD 40 MG TAB PO SCH (21:23)
[2016-07-17] MEDS: ZOLPIDEM TARTRATE 5 MG TAB PO SCH (21:23)
[2016-07-17] MEDS: TAMSULOSIN HCL 0.4 MG CAP PO SCH (21:23)
[2016-07-18] VITALS (27 sets, daily range): BP systolic 92–121; BP diastolic 49–81; PULSE 74–104; RESP 20–24; TEMP 97.8–99.2; O2SAT 91–94
[2016-07-18] MEDS: DILTIAZEM HCL 60 MG TAB PO SCH ×4 (00:17→18:00)
[2016-07-18] MEDS: CEFEPIME INJ 2,000 MG in SODIUM CHLORIDE 0.9% INJ 100 ML IV SCH ×3 (00:20→16:00)
[2016-07-18] MEDS: RESP: ALBUTEROL 2.5 MG/IPRATROPIUM 0.5 MG NEB (SCH) NEB ×2 (08:03→12:45)
[2016-07-18] MEDS: BUMETANIDE 1 MG TAB PO SCH (08:31)
[2016-07-18] MEDS: SODIUM CHLORIDE 0.9% FLUSH 5 ML FLUSH FLUSH SCH ×2 (08:31→21:36)
[2016-07-18] MEDS: ACYCLOVIR 200 MG CAP PO SCH ×2 (08:31→21:35)
[2016-07-18] MEDS: METOPROLOL SUCCINATE 25 MG EXTENDED RELEASE TAB PO SCH (08:31)
[2016-07-18] MEDS: APIXABAN 5 MG TABLET PO SCH ×2 (08:31→21:36)
[2016-07-18] MEDS: AMIODARONE 200 MG TAB PO SCH ×2 (08:32→21:36)
--- NOTE | 2016-07-18 09:51 | HHI.PR ---
Subjective Remarks Follow-up for shortness of breath Shortness of breath better but still coughing a lot of thick yellowish greenish sputum, no fever or chills. No lower extremity edema. Denies any chest pain or palpitations. Heart rate more controlled. Objective Vitals Vital Signs Date Time Temp Pulse Resp B/P Pulse Ox O2 Delivery O2 Flow Rate FiO2 07/18/16 08:05 92 Nasal Cannula 4.00 07/18/16 06:00 80 07/18/16 05:00 86 07/18/16 04:00 98.6 74 22 105/58 91 07/18/16 03:48 80 07/18/16 03:00 80 07/18/16 02:00 85 07/18/16 01:00 92 07/18/16 00:00 99.2 89 24 92/49 92 07/18/16 00:00 96 07/17/16 23:00 95 07/17/16 22:00 84 07/17/16 21:25 93 Nasal Cannula 4.00 07/17/16 21:00 94 07/17/16 20:00 93 07/17/16 20:00 98.6 89 22 114/68 93 07/17/16 19:00 93 07/17/16 18:22 91 07/17/16 17:03 87 07/17/16 16:00 82 07/17/16 15:40 97.8 93 20 131/72 92 07/17/16 15:40 80 07/17/16 14:16 117 07/17/16 13:05 104 07/17/16 12:03 108 07/17/16 11:20 98.3 86 22 112/67 93 07/17/16 11:20 81 07/17/16 10:17 93 I/O 07/17/16 07/17/16 07/17/16 07/18/16 07/18/16 07/18/16 07:00 15:00 23:00 07:00 15:00 23:00 Intake Total 240 ml 480 ml 480 ml Output Total 60 ml 400 ml 200 ml Balance 180 ml 80 ml 280 ml Intake Oral 240 ml 480 ml 480 ml Output Urine Total 60 ml 400 ml 200 ml # Voids 1 2 3 # Bowel Movements 0 0 Result Diagram: 07/16/16 1440 07/17/16 0523 Objective Remarks Not in distress. PERRL, pink conjunctiva without injection, anicteric Nose without bleeding, airway patent, oropharynx clear Supple neck, no masses or thyromegaly, trachea midline Borderline tachycardic, regular rhythm, no murmurs. Respiratory sounds symmetrically, no wheezing, occasional crackles, no rhonchi. Normal bowel sounds, soft, non-tender, nondistended, no guarding. Extremities without clubbing, cyanosis, trace edema. No rash of generalized distribution. Skin is warm and dry. AAO x3, no cranial nerve deficits, moves all 4 extremities, no focal neurologic deficits Normal mood, appropriate affect A/P Problem List: (1) Sepsis due to pneumonia ICD Code: J18.9 Status: Acute (2) Lymphoma ICD Code: C85.90 Status: Chronic (3) Atrial fibrillation with RVR ICD Code: I48.91 Status: Acute (4) Hypoxemia ICD Code: R09.02 Status: Acute Assessment and Plan This is a 75-year-old male with history of atrial fibrillation and COPD, admitted for shortness of breath Shortness of breath secondary to pneumonia with sepsis-continue cefepime, received azithromycin, hold off on azithromycin because of atrial fibrillation. Patient is immunocompromised, had chemotherapy 2 weeks ago. Leukocytosis is better. Recheck CBC tomorrow. Atrial fibrillation with rapid ventricular response-likely secondary to sepsis, off Cardizem drip, increase Cardizem to 90 mg every 6 hours. Continue metoprolol, eliquis, amiodarone Hypertension-continue metoprolol, Cardizem as above. CHF- BNP is normal, Continue Bumex, does not appear to be in exacerbation, recheck BMP tomorrow. COPD-not in exacerbation, continue duo nebs, hold off on steroids for now, patient is oriented immunocompromised. Does not sound to be in exacerbation. Still with a lot of mucus, start Mucomyst nebulization, Acapella, DuoNeb's [id number], check sputum culture. Lymphomacurrently on chemotherapy. Last dose was 2 weeks ago. BPH-continue Flomax. Hypokalemia-replaced. Recheck potassium and magnesium tomorrow. DVT prophylaxis: On eliquis. Discharge Planning Might need rehabilitation Sera Eddy MD Jul 18, 2016 09:51
[2016-07-18] MEDS: RESP: ACETYLCYSTEINE 10% 30 ML NEB NEB SCH (18:20)
[2016-07-18] MEDS: RESP: ALBUTEROL 2.5 MG/IPRATROPIUM 0.5 MG NEB (PRN) NEB ×2 (18:20→20:26)
[2016-07-18] MEDS: TAMSULOSIN HCL 0.4 MG CAP PO SCH (21:35)
[2016-07-18] MEDS: ZOLPIDEM TARTRATE 5 MG TAB PO SCH (21:35)
[2016-07-18] MEDS: PRAVASTATIN SOD 40 MG TAB PO SCH (21:36)
[2016-07-19] VITALS (29 sets, daily range): BP systolic 100–120; BP diastolic 48–71; PULSE 74–98; RESP 20–22; TEMP 98–99.1; O2SAT 90–95
[2016-07-19] MEDS: RESP: ALBUTEROL 2.5 MG/IPRATROPIUM 0.5 MG NEB (SCH) NEB ×3 (00:53→15:17)
[2016-07-19] MEDS: RESP: ACETYLCYSTEINE 10% 30 ML NEB NEB SCH ×2 (00:54→15:16)
[2016-07-19] MEDS: DILTIAZEM HCL 60 MG TAB PO SCH ×4 (05:26→17:23)
[2016-07-19 07:16] LABS: AUTOMATED NEUTROPHIL # 5.3 TH/MM3 (1.8-7.7); BASOPHIL % 0.2 % (0.0-2.0); EOSINOPHIL % 0.6 % (0.0-4.0); HEMO FLAGS DIFF FINAL; LYMPH % 9.4 % (9.0-44.0); LYMPHOCYTE # 0.6 TH/MM3 (1.0-4.8); MEAN CORPUSCULAR HEMOGLOBIN 29.7 PG (27.0-34.0); MEAN CORPUSCULAR HGB CONC 32.7 % (32.0-36.0); MONO % 13.2 % (0.0-8.0); NEUT % 76.6 % (16.0-70.0); PLATELET COUNT 129 TH/MM3 (150-450); RED BLOOD COUNT 3.63 MIL/MM3 (4.50-5.90); RED CELL DISTRIBUTION WIDTH 15.3 % (11.6-17.2); WHITE BLOOD COUNT 6.9 TH/MM3 (4.0-11.0)
[2016-07-19 07:22] LABS: BICARBONATE 31.5 MEQ/L (21.0-32.0); MAGNESIUM 2.2 MG/DL (1.5-2.5); POTASSIUM 3.2 MEQ/L (3.5-5.1)
[2016-07-19] MEDS: CEFEPIME INJ 2,000 MG in SODIUM CHLORIDE 0.9% INJ 100 ML IV SCH ×4 (08:00→16:00)
[2016-07-19] MEDS: AMIODARONE 200 MG TAB PO SCH ×2 (09:00→20:57)
[2016-07-19] MEDS: BUMETANIDE 1 MG TAB PO SCH (09:00)
[2016-07-19] MEDS: SODIUM CHLORIDE 0.9% FLUSH 5 ML FLUSH FLUSH SCH ×2 (09:00→20:55)
[2016-07-19] MEDS: ACYCLOVIR 200 MG CAP PO SCH ×2 (09:51→20:56)
[2016-07-19] MEDS: METOPROLOL SUCCINATE 25 MG EXTENDED RELEASE TAB PO SCH (09:51)
[2016-07-19] MEDS: APIXABAN 5 MG TABLET PO SCH ×2 (09:51→20:57)
--- NOTE | 2016-07-19 14:51 | HHI.PR ---
Subjective Remarks f/u sob sob a lot better today than yesterday, no chest pain, no palpitations, HR more controlled Objective Vitals Vital Signs Date Time Temp Pulse Resp B/P Pulse Ox O2 Delivery O2 Flow Rate FiO2 07/19/16 13:00 92 07/19/16 12:00 90 07/19/16 11:43 94 Nasal Cannula 4.00 07/19/16 11:30 99.0 82 20 103/56 92 07/19/16 11:00 86 07/19/16 10:00 80 07/19/16 09:00 80 07/19/16 08:00 78 07/19/16 07:15 99.1 85 22 120/71 90 07/19/16 07:00 82 07/19/16 06:00 74 07/19/16 05:00 84 07/19/16 04:00 84 07/19/16 03:54 98.4 98 20 120/71 92 07/19/16 03:00 86 07/19/16 02:00 82 07/19/16 01:00 88 07/19/16 00:00 86 07/18/16 23:56 98.2 99 20 121/63 92 07/18/16 23:00 87 07/18/16 22:00 104 07/18/16 21:00 91 07/18/16 20:27 94 Nasal Cannula 4.00 07/18/16 20:00 95 07/18/16 19:00 95 07/18/16 15:30 98.4 85 20 113/81 94 I/O 07/18/16 07/18/16 07/18/16 07/19/16 07/19/16 07/19/16 07:00 15:00 23:00 07:00 15:00 23:00 Intake Total 480 ml 580 ml Output Total 200 ml 625 ml Balance 280 ml -45 ml Intake Oral 480 ml 480 ml IV Total 100 ml Output Urine Total 200 ml 625 ml # Voids 3 # Bowel Movements 0 0 Result Diagram: 07/19/16 0513 07/19/16 0513 Objective Remarks Not in distress. PERRL, pink conjunctiva without injection, anicteric Nose without bleeding, airway patent, oropharynx clear Supple neck, no masses or thyromegaly, trachea midline Regular rate, regular rhythm, no murmurs. Respiratory sounds symmetrically, no wheezing, occasional crackles, no rhonchi. Normal bowel sounds, soft, non-tender, nondistended, no guarding. Extremities without clubbing, cyanosis, trace edema. No rash of generalized distribution. Skin is warm and dry. AAO x3, no cranial nerve deficits, moves all 4 extremities, no focal neurologic deficits Normal mood, appropriate affect A/P Problem List: (1) Sepsis due to pneumonia ICD Code: J18.9 Status: Acute (2) Lymphoma ICD Code: C85.90 Status: Chronic (3) Atrial fibrillation with RVR ICD Code: I48.91 Status: Acute (4) Hypoxemia ICD Code: R09.02 Status: Acute Assessment and Plan This is a 75-year-old male with history of atrial fibrillation and COPD, admitted for shortness of breath Shortness of breath secondary to pneumonia with sepsis- continue cefepime, received azithromycin, hold off on azithromycin because of atrial fibrillation. Patient is immunocompromised, had chemotherapy 2 weeks ago. Leukocytosis is better. Leukocytosis resolved. Atrial fibrillation with rapid ventricular response-likely secondary to sepsis, off Cardizem drip, continue Cardizem to 90 mg every 6 hours. Continue metoprolol, eliquis, amiodarone Hypertension-continue metoprolol, Cardizem as above. CHF- BNP is normal, Continue Bumex, does not appear to be in exacerbation, BMP stable. COPD-not in exacerbation, continue duo nebs, hold off on steroids for now, patient is oriented immunocompromised. Does not sound to be in exacerbation. Still with a lot of mucus, start Mucomyst nebulization, Acapella, DuoNeb's [id number], check sputum culture. Lymphomacurrently on chemotherapy. Last dose was 2 weeks ago. BPH-continue Flomax. Hypokalemia-replaced. Replace again today. Magnesium is fine. DVT prophylaxis: On eliquis. Transfer to [facility] Discharge Planning Might need rehabilitation Sera Eddy MD Jul 19, 2016 14:50
[2016-07-19] MEDS ORDERED: AMBI5TAB PO (14:54)
[2016-07-19] MEDS ORDERED: POTASSIUM CHLORIDE 20 MEQ CONTROLLED RELEASE TAB PO ONE (16:00)
[2016-07-19] MEDS: ZOLPIDEM TARTRATE 5 MG TAB PO SCH (20:56)
[2016-07-19] MEDS: PRAVASTATIN SOD 40 MG TAB PO SCH (20:57)
[2016-07-19] MEDS: TAMSULOSIN HCL 0.4 MG CAP PO SCH (20:57)
[2016-07-20] VITALS (14 sets, daily range): BP systolic 107–118; BP diastolic 63–85; PULSE 75–95; RESP 18–21; TEMP 97.9–99.6; O2SAT 90–96
[2016-07-20] MEDS: DILTIAZEM HCL 60 MG TAB PO SCH ×4 (00:06→17:11)
[2016-07-20] MEDS: CEFEPIME INJ 2,000 MG in SODIUM CHLORIDE 0.9% INJ 100 ML IV SCH ×3 (00:07→17:12)
[2016-07-20] MEDS: RESP: ACETYLCYSTEINE 10% 30 ML NEB NEB SCH ×4 (01:45→23:45)
[2016-07-20] MEDS: RESP: ALBUTEROL 2.5 MG/IPRATROPIUM 0.5 MG NEB (SCH) NEB ×4 (01:45→23:45)
[2016-07-20] MEDS: SODIUM CHLORIDE 0.9% FLUSH 5 ML FLUSH FLUSH SCH ×2 (09:43→21:54)
[2016-07-20] MEDS: BUMETANIDE 1 MG TAB PO SCH (09:45)
[2016-07-20] MEDS: METOPROLOL SUCCINATE 25 MG EXTENDED RELEASE TAB PO SCH (09:45)
[2016-07-20] MEDS: APIXABAN 5 MG TABLET PO SCH ×2 (09:45→21:54)
[2016-07-20] MEDS: ACYCLOVIR 200 MG CAP PO SCH ×2 (09:45→21:54)
[2016-07-20] MEDS: AMIODARONE 200 MG TAB PO SCH ×2 (09:45→21:42)
[2016-07-20] MEDS ORDERED: DILT60TA33 PO (14:13)
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
--- NOTE | 2016-07-20 19:52 | RADRPT ---
EXAM DATE/TIME: 07/20/2016 18:18 [facility] COMPARISON: CHEST SINGLE AP, July 15, 2016, 19:11. INDICATIONS : Short of Breath MEDICAL HISTORY : Hypertension. Congestive heart failure. Hypercholesterolemia. Lymphoma.Prostate cancer. SURGICAL HISTORY : None. ENCOUNTER: Initial ACUITY: 1 week PAIN SCORE: 4/10 LOCATION: Bilateral chest FINDINGS: Comparison is July 15. Previous air space consolidation in the left lung is slightly improved. Mil d basilar airspace disease persists bilaterally. Probable small left effusion. No pneumothorax. CONCLUSION: 1. Improvement in left lung consolidation since July 15. Small left effusion. Ti Cornejo MD on July 20, 2016 at 19:49 Board Certified Radiologist. This report was verified electronically.
[2016-07-20] MEDS: TAMSULOSIN HCL 0.4 MG CAP PO SCH (21:42)
[2016-07-20] MEDS: PRAVASTATIN SOD 40 MG TAB PO SCH (21:42)
[2016-07-20] MEDS: ZOLPIDEM TARTRATE 5 MG TAB PO SCH (21:42)
[2016-07-21] VITALS (7 sets, daily range): BP systolic 92–106; BP diastolic 52–69; PULSE 81–106; RESP 20–21; TEMP 96.7–98.5; O2SAT 91–93
[2016-07-21] MEDS: DILTIAZEM HCL 60 MG TAB PO SCH ×2 (00:08→06:45)
[2016-07-21] MEDS: CEFEPIME INJ 2,000 MG in SODIUM CHLORIDE 0.9% INJ 100 ML IV SCH (00:08)
[2016-07-21] MEDS: RESP: ALBUTEROL 2.5 MG/IPRATROPIUM 0.5 MG NEB (SCH) NEB ×2 (08:12→16:03)
[2016-07-21] MEDS: RESP: ACETYLCYSTEINE 10% 30 ML NEB NEB SCH ×2 (08:12→16:03)
--- NOTE | 2016-07-21 09:16 | HHI.PR ---
Subjective Remarks Follow-up for shortness of breath Patient feels better every day, that should of breath today than yesterday. No nausea, vomiting or fever. Discharge delayed because of lack of authorization for discharge to rehabilitation. Objective Vitals Vital Signs Date Time Temp Pulse Resp B/P Pulse Ox O2 Delivery O2 Flow Rate FiO2 07/21/16 08:16 93 Nasal Cannula 4.00 07/21/16 07:23 Nasal Cannula 4.00 Humidified 07/21/16 04:30 97.8 106 20 92/52 92 07/21/16 00:30 98.5 93 20 106/62 91 07/20/16 23:45 92 Nasal Cannula 5.00 07/20/16 20:55 99.6 88 21 110/74 91 07/20/16 16:08 94 Nasal Cannula 4.00 07/20/16 16:00 98.4 86 18 116/76 96 07/20/16 11:00 98.1 80 18 118/85 94 I/O 07/20/16 07/20/16 07/20/16 07/21/16 07/21/16 07/21/16 07:00 15:00 23:00 07:00 15:00 23:00 Intake Total 340 ml 1662 ml 120 ml Output Total 600 ml 1250 ml Balance -260 ml 412 ml 120 ml Intake Oral 240 ml 1200 ml 120 ml IV Total 100 ml 462 ml Output Urine Total 600 ml 1250 ml # Voids 1 1 # Bowel Movements 0 1 0 Result Diagram: 07/19/16 0513 07/19/16 0513 Objective Remarks Not in distress. PERRL, pink conjunctiva without injection, anicteric Nose without bleeding, airway patent, oropharynx clear Supple neck, no masses or thyromegaly, trachea midline Regular rate, regular rhythm, no murmurs. Occasional wheezing, no rhonchi or crackles. Abdomen, soft, nontender. Extremities without clubbing, cyanosis, trace edema. No rash of generalized distribution. Skin is warm and dry. AAO x3, no cranial nerve deficits, moves all 4 extremities, no focal neurologic deficits Normal mood, appropriate affect Procedures None A/P Problem List: (1) Sepsis due to pneumonia ICD Code: J18.9 Status: Acute (2) Lymphoma ICD Code: C85.90 Status: Chronic (3) Atrial fibrillation with RVR ICD Code: I48.91 Status: Acute (4) Hypoxemia ICD Code: R09.02 Status: Acute Assessment and Plan This is a 75-year-old male with history of atrial fibrillation and COPD, admitted for shortness of breath Shortness of breath secondary to pneumonia with sepsis- continue antibiotics, received azithromycin, hold off on azithromycin because of atrial fibrillation. Patient is immunocompromised, had chemotherapy 2 weeks ago. Leukocytosis resolved. Switch cefepime to Ceftin. Atrial fibrillation with rapid ventricular response-likely secondary to sepsis, off Cardizem drip, continue Cardizem to 90 mg every 6 hours switch to long- acting. Continue metoprolol, eliquis, amiodarone Hypertension-continue metoprolol, Cardizem as above. CHF- BNP is normal, Continue Bumex, will give an extra dose of Bumex today, monitor urine output, recheck BMP tomorrow. COPD-not in exacerbation, continue duo nebs, hold off on steroids for now, patient is immunocompromised. Does not sound to be in exacerbation. Still with a lot of mucus, continue Mucomyst nebulization, Acapella, DuoNeb's around- the-clock, sputum culture grew normal karen. Lymphomacurrently on chemotherapy. Last dose was 2 weeks ago. BPH-continue Flomax. Hypokalemia-replaced. Replace again today. Magnesium is fine. DVT prophylaxis: On eliquis. Discharge Planning Discharge to rehabilitation tomorrow once authorization is in. Sera Eddy MD Jul 21, 2016 09:16
[2016-07-21] MEDS: METOPROLOL SUCCINATE 25 MG EXTENDED RELEASE TAB PO SCH (09:47)
[2016-07-21] MEDS: AMIODARONE 200 MG TAB PO SCH ×2 (09:48→21:54)
[2016-07-21] MEDS: ACYCLOVIR 200 MG CAP PO SCH ×2 (09:48→21:54)
[2016-07-21] MEDS: APIXABAN 5 MG TABLET PO SCH ×2 (09:48→21:55)
[2016-07-21] MEDS: SODIUM CHLORIDE 0.9% FLUSH 5 ML FLUSH FLUSH SCH ×2 (09:48→21:55)
[2016-07-21] MEDS: BUMETANIDE 1 MG TAB PO SCH (09:48)
[2016-07-21] MEDS: DILTIAZEM HCL 90 MG TAB PO SCH ×2 (12:28→17:46)
[2016-07-21 12:49] LABS: BICARBONATE 35.9 MEQ/L (21.0-32.0)
[2016-07-21 12:55] LABS: POTASSIUM 3.7 MEQ/L (3.5-5.1)
[2016-07-21] MEDS ORDERED: BUMETANIDE INJ 1 MG/4 ML VIAL IV PUSH ONE (15:00)
[2016-07-21] MEDS: TAMSULOSIN HCL 0.4 MG CAP PO SCH (21:54)
[2016-07-21] MEDS: CEFUROXIME AXETIL 500 MG TAB PO SCH (21:54)
[2016-07-21] MEDS: PRAVASTATIN SOD 40 MG TAB PO SCH (21:55)
[2016-07-21] MEDS: ZOLPIDEM TARTRATE 5 MG TAB PO SCH (21:55)
[2016-07-22] VITALS (9 sets, daily range): BP systolic 100–115; BP diastolic 59–66; PULSE 78–87; RESP 17–21; TEMP 96–98.6; O2SAT 92–95
[2016-07-22] MEDS: DILTIAZEM HCL 90 MG TAB PO SCH ×2 (00:23→05:46)
[2016-07-22] MEDS: RESP: ACETYLCYSTEINE 10% 30 ML NEB NEB SCH ×2 (01:43→10:15)
[2016-07-22] MEDS: RESP: ALBUTEROL 2.5 MG/IPRATROPIUM 0.5 MG NEB (SCH) NEB ×3 (01:44→16:25)
[2016-07-22 05:54] LABS: BICARBONATE 32.1 MEQ/L (21.0-32.0); POTASSIUM 3.2 MEQ/L (3.5-5.1)
[2016-07-22] MEDS: BUMETANIDE 1 MG TAB PO SCH (08:50)
[2016-07-22] MEDS: CEFUROXIME AXETIL 500 MG TAB PO SCH ×2 (08:50→21:04)
[2016-07-22] MEDS: ACYCLOVIR 200 MG CAP PO SCH ×2 (08:50→21:06)
[2016-07-22] MEDS: DILTIAZEM-CD 180 MG CAP ER PO SCH (08:50)
[2016-07-22] MEDS: METOPROLOL SUCCINATE 25 MG EXTENDED RELEASE TAB PO SCH (08:51)
[2016-07-22] MEDS: AMIODARONE 200 MG TAB PO SCH ×2 (08:51→21:04)
[2016-07-22] MEDS: SODIUM CHLORIDE 0.9% FLUSH 5 ML FLUSH FLUSH SCH ×2 (08:51→21:00)
[2016-07-22] MEDS: APIXABAN 5 MG TABLET PO SCH ×2 (08:51→21:06)
--- NOTE | 2016-07-22 11:02 | HHI.PR ---
Subjective Remarks Follow-up dyspnea, weakness. The patient states that he feels okay today. He has no specific complaints. Denies chest pain, dyspnea. Does report cough productive of clear phlegm. Objective Vitals Vital Signs Date Time Temp Pulse Resp B/P Pulse Ox O2 Delivery O2 Flow Rate FiO2 07/22/16 10:15 94 Nasal Cannula 4.00 07/22/16 08:00 98.1 78 20 115/59 92 07/22/16 04:40 98.6 87 21 100/59 92 07/22/16 01:46 93 Nasal Cannula 4.00 07/22/16 00:45 97.2 86 20 100/64 95 07/21/16 20:55 98.2 93 20 103/61 92 07/21/16 18:23 Nasal Cannula 4.00 Humidified 07/21/16 16:00 97.5 88 20 105/69 93 07/21/16 12:00 96.7 84 20 105/63 92 07/21/16 11:15 Nasal Cannula 4.00 Humidified I/O 07/21/16 07/21/16 07/21/16 07/22/16 07/22/16 07/22/16 07:00 15:00 23:00 07:00 15:00 23:00 Intake Total 120 ml 960 ml 240 ml 120 ml Output Total 300 ml Balance 120 ml 960 ml -60 ml 120 ml Intake Oral 120 ml 960 ml 240 ml 120 ml Output Urine Total 300 ml # Voids 1 7 1 # Bowel Movements 0 0 0 0 Result Diagram: 07/19/16 0513 07/22/16 0442 Imaging Last Impressions Chest X-Ray 07/20/16 0000 Signed Impressions: Service Date/Time: Wednesday, July 20, 2016 18:18 - CONCLUSION: 1. Improvement in left lung consolidation since July 15. Small left effusion. Ti Cornejo MD Head CT 07/15/161951 Signed Impressions: Service Date/Time: Friday, July 15, 2016 20:31 - CONCLUSION: 1. No acute intracranial abnormalities. Moderate ischemic changes in the periventricular white matter. Ti Cornejo MD Abdomen/Pelvis CT 07/15/16 5558 Signed Impressions: Service Date/Time: Friday, July 15, 2016 19:25 - CONCLUSION: 1. Retroperitoneal, mesenteric and pelvic adenopathy as above. There is also extensive stranding of fat in the retroperitoneum extending into the pelvis which can be seen with lymphoma. Retroperitoneal hemorrhage considered less likely. Aorta is atherosclerotic but intact without aneurysm. 2. Adenopathy is a new finding since the 2011 exam. 3. Loculated fluid and pleural thickening left lung base. 4. Probable gallstones in gallbladder. Small pericardial effusion. 5. Previous left hip replacement. Ti Cornejo MD Hip and Pelvis X-Ray 07/15/16 0000 Signed Impressions: Service Date/Time: Friday, July 15, 2016 19:19 - CONCLUSION: 1. Previous total left hip replacement. No acute findings. Ti Cornejo MD Objective Remarks General: No acute distress. Heart: Regular rate and rhythm. No murmur. Lungs: Mild scattered wheeze. Breathing is nonlabored. Abdomen: Soft, nontender, nondistended. Extremities: No lower extremity edema. Psych: Alert and oriented. Answers questions appropriately. Procedures None Urinary Catheter: No Vascular Central Line Catheter: No A/P Problem List: (1) Sepsis due to pneumonia ICD Code: J18.9 Status: Resolved (2) Lymphoma ICD Code: C85.90 Status: Chronic (3) Atrial fibrillation with RVR ICD Code: I48.91 Status: Acute (4) Hypoxemia ICD Code: R09.02 Status: Acute Assessment and Plan 1. Dyspnea: Secondary to pneumonia with sepsis. Continue antibiotics. Patient is immunocompromised. Had chemotherapy 2 weeks ago. Leukocytosis resolved. 2. Atrial fibrillation with RVR: Improved. Likely secondary to sepsis. Continue oral Cardizem, metoprolol, Eliquis, amiodarone. 3. Hypertension: Continue metoprolol, Cardizem. 4. CHF: Continue Bumex. 5. COPD: Not in exacerbation. Continue duo nebs, supplemental oxygen. 6. Lymphoma: Currently on chemotherapy, most recent treatment 2 weeks ago. 7. BPH: Continue Flomax. 8. Hypokalemia: Supplement potassium. 9. DVT prophylaxis: Eliquis. Discharge Planning Plan for discharge to SNF when arrangements are made. Vinnie Contreras MD Jul 22, 2016 11:02
--- NOTE | 2016-07-22 11:33 | HHI.DCPOC ---
Discharge Care Plan Diagnosis: (1) Sepsis due to pneumonia (2) Atrial fibrillation with RVR (3) Lymphoma (4) Hypoxemia (5) CAP (community acquired pneumonia) Goals to Promote Your Health * To prevent worsening of your condition and complications * To maintain your health at the optimal level Directions to Meet Your Goals Take your medications as prescribed Follow your dietary instruction Follow activity as directed Keep your appointments as scheduled Take your immunizations and boosters as scheduled If your symptoms worsen call your PCP, if no PCP go to Urgent Care Center or Emergency Room Smoking is Dangerous to Your Health. Avoid second hand smoke Call the 24-hour hour crisis hotline for domestic abuse at Vinnie Contreras MD Jul 22, 2016 11:33
[2016-07-22] MEDS ORDERED: CEFT500T3 PO (11:35)
[2016-07-22] MEDS ORDERED: POTASSIUM CHLORIDE 20 MEQ CONTROLLED RELEASE TAB PO ONE (12:00)
[2016-07-22] MEDS: PRAVASTATIN SOD 40 MG TAB PO SCH (21:00)
[2016-07-22] MEDS: ZOLPIDEM TARTRATE 5 MG TAB PO SCH (21:04)
[2016-07-22] MEDS: TAMSULOSIN HCL 0.4 MG CAP PO SCH (21:04)
[2016-07-23] VITALS (8 sets, daily range): BP systolic 97–140; BP diastolic 60–71; PULSE 76–95; RESP 16–20; TEMP 97.2–98; O2SAT 90–97
[2016-07-23] MEDS: DILTIAZEM-CD 180 MG CAP ER PO SCH (08:26)
[2016-07-23] MEDS: SODIUM CHLORIDE 0.9% FLUSH 5 ML FLUSH FLUSH SCH ×2 (08:26→22:01)
[2016-07-23] MEDS: METOPROLOL SUCCINATE 25 MG EXTENDED RELEASE TAB PO SCH (08:26)
[2016-07-23] MEDS: APIXABAN 5 MG TABLET PO SCH ×2 (08:26→22:00)
[2016-07-23] MEDS: ACYCLOVIR 200 MG CAP PO SCH ×2 (08:26→22:00)
[2016-07-23] MEDS: AMIODARONE 200 MG TAB PO SCH ×2 (08:26→22:00)
[2016-07-23] MEDS: BUMETANIDE 1 MG TAB PO SCH (08:26)
[2016-07-23] MEDS: CEFUROXIME AXETIL 500 MG TAB PO SCH ×2 (08:26→22:00)
--- NOTE | 2016-07-23 09:40 | MB ---
cc: DAMI CONTRERAS,OCTAVIO RUSH M.D., M.D. DATE OF CONSULTATION: 07/23/2016 DATE OF : [address] Contreras CHIEF COMPLAINT [address] Contreras requests a consultation for Mr. Fay regarding a history of low grade lymphoma. HISTORY OF PRESENT ILLNESS Mr. Fay is a 75-year-old man, well-known patient of Dr. Chucho Moncada, with low grade lymphoma. He is undergoing treatment at present. He has multiple medical problems including hypertension, chronic anxiety, atrial fibrillation, congestive heart failure, hyperlipidemia and low grade lymphoma. He is known from a previous consultation on May 31, 2016 when he presented to the emergency room with chest pains and abdominal pain. He presented this time to the emergency room on July 15, 2016 with the same complaints of GI symptoms. He has had abdominal pain for about three days. He presented with pain in the periumbilical area that is constant. He has not had a bowel movement for a few days. His course was complicated by atrial fibrillation, rapid ventricular response. He was treated by the primary team with a Cardizem drip and switched to long-acting oral Cardizem every six hours. His heart rate was well controlled. He was continued on his beta katlyn as well and Eliquis for chronic anticoagulation. He is also on amiodarone. During the hospital admission he was found to have a left lung infiltrate and possible loculated effusion. He has a small pericardial effusion. He was started on antibiotic therapy for presumed infectious etiology. His blood culture has had no growth for five days. He has been afebrile. He is going to complete a course of antibiotics. He was seen by physical therapy for deconditioning. His discharge planning includes transfer to rehab to continue his antibiotic therapy and treatment for deconditioning. REVIEW OF SYSTEMS Mr. Fay feels weak. He denies any chest pain or shortness of breath. He admits his appetite is decreased. He feels that his stomach has shrunk just like an atrophied muscle. He denies any nausea or vomiting. He has no headaches. He plans to return to Dr. Moncada and continue his chemotherapy treatment. The rest of his review of systems is negative. PAST MEDICAL HISTORY 1. Low grade lymphoma. 2. Congestive heart failure. 3. Rate-controlled atrial fibrillation. 4. Hypertension. 5. Hyperlipidemia. 6. Anxiety. PAST SURGICAL HISTORY 1. Left hip surgery. 2. Cataract surgery. 3. Tonsillectomy. 4. Adenoidectomy. 5. Total left hip replacement. SOCIAL HISTORY He is . He is an ex-smoker. Denies any alcohol or illicit drug use. ALLERGIES No known drug allergies. MEDICATIONS Current medications: 1. Potassium chloride. 2. Cardizem. 3. Ceftin. 4. Ambien p.r.n. 5. Pravachol. 6. Flomax. 7. DuoNeb. 8. Zovirax. 9. Cordarone. 10.Apixaban 5 mg b.i.d. 11.Bumex. 12.Toprol. PHYSICAL EXAMINATION VITAL SIGNS: Temperature 97.2, heart rate 95, respiratory rate 20, blood pressure 97/61, saturation 97%. GENERAL: Mr. Fay is a well-developed, heavyset man. HEENT: Pupils are round and reactive to light and accommodation. Oropharynx is dry. NECK: Supple. No adenopathy. AXILLAE: No axillary adenopathy. LUNGS: Clear anteriorly. CARDIOVASCULAR: Rate-controlled irregularly irregular rhythm. ABDOMEN: Large and benign. No masses appreciated. EXTREMITIES: Lower extremities with no edema. LABORATORY Significant for mild anemia, hemoglobin 10.9, platelet count 129, BUN of 22, creatinine 0.89, beta-natriuretic peptide was 37. ASSESSMENT AND PLAN Mr. Fay is a 75-year-old man with multiple medical problems. He has a low grade lymphoma undergoing treatment under the care Dr. Chucho Moncada. His course was complicated by atrial fibrillation, rapid ventricular response and a new left lung infiltrate. He is receiving treatment for both. His atrial fibrillation is controlled. He continues on anticoagulant therapy. He has had no acute bleeding. Hematology/oncology is consulted for his history of lymphoma. I recommend continuing his antibiotic course until completion. I defer to Dr. Moncada the timing and continuation of his treatment. In general we discussed that the infectious etiology needs to be resolved first before chemotherapy could proceed. The case was called into Dr. Moncada. We will coordinate follow-up for patient after his stay in rehab to continue treatment for his low grade lymphoma. MD NAVI Perez /9:05 AM /9:18 AM
--- NOTE | 2016-07-23 13:03 | HHI.PR ---
Subjective Remarks Follow-up sepsis, lymphoma, A. fib. Patient states that he feels "great" today. He wants to go to rehabilitation today. Denies chest pain, dyspnea, nausea, vomiting. Objective Vitals Vital Signs Date Time Temp Pulse Resp B/P Pulse Ox O2 Delivery O2 Flow Rate FiO2 07/23/16 08:00 97.2 88 18 140/71 92 07/23/16 05:30 97.2 95 20 97/61 97 07/23/16 00:15 98.0 89 20 103/64 91 07/22/16 22:39 79 07/22/16 22:37 Nasal Cannula 3.00 07/22/16 20:00 98.3 83 21 100/66 93 07/22/16 16:00 96.0 86 17 109/60 93 07/22/16 15:04 94 Nasal Cannula 3.00 I/O 07/22/16 07/22/16 07/22/16 07/23/16 07/23/16 07/23/16 07:00 15:00 23:00 07:00 15:00 23:00 Intake Total 120 ml 725 ml 240 ml 120 ml Output Total 725 ml 325 ml Balance 120 ml 0 ml -85 ml 120 ml Intake Oral 120 ml 725 ml 240 ml 120 ml Output Urine Total 725 ml 325 ml # Voids 1 6 1 # Bowel Movements 0 0 Result Diagram: 07/19/16 0513 07/22/16 0442 Imaging Last Impressions Chest X-Ray 07/20/16 0000 Signed Impressions: Service Date/Time: Wednesday, July 20, 2016 18:18 - CONCLUSION: 1. Improvement in left lung consolidation since July 15. Small left effusion. Ti Cornejo MD Head CT 07/15/161951 Signed Impressions: Service Date/Time: Friday, July 15, 2016 20:31 - CONCLUSION: 1. No acute intracranial abnormalities. Moderate ischemic changes in the periventricular white matter. Ti Cornejo MD Abdomen/Pelvis CT 07/15/161808 Signed Impressions: Service Date/Time: Friday, July 15, 2016 19:25 - CONCLUSION: 1. Retroperitoneal, mesenteric and pelvic adenopathy as above. There is also extensive stranding of fat in the retroperitoneum extending into the pelvis which can be seen with lymphoma. Retroperitoneal hemorrhage considered less likely. Aorta is atherosclerotic but intact without aneurysm. 2. Adenopathy is a new finding since the 2011 exam. 3. Loculated fluid and pleural thickening left lung base. 4. Probable gallstones in gallbladder. Small pericardial effusion. 5. Previous left hip replacement. Ti Cornejo MD Hip and Pelvis X-Ray 07/15/16 0000 Signed Impressions: Service Date/Time: Friday, July 15, 2016 19:19 - CONCLUSION: 1. Previous total left hip replacement. No acute findings. Ti Cornejo MD Objective Remarks General: No acute distress. Heart: Regular rate and rhythm. No murmur. Lungs: Clear to auscultation. Breathing is nonlabored. Abdomen: Soft, nontender, nondistended. Extremities: No lower extremity edema. Psych: Alert and oriented. Answers questions appropriately. Procedures None Urinary Catheter: No Vascular Central Line Catheter: No A/P Problem List: (1) Sepsis due to pneumonia ICD Code: J18.9 Status: Resolved (2) Lymphoma ICD Code: C85.90 Status: Chronic (3) Atrial fibrillation with RVR ICD Code: I48.91 Status: Acute (4) Hypoxemia ICD Code: R09.02 Status: Acute Assessment and Plan 1. Dyspnea: Secondary to pneumonia with sepsis. Continue antibiotics. Patient is immunocompromised. Had chemotherapy 2 weeks ago. Leukocytosis resolved. 2. Atrial fibrillation with RVR: Improved. Likely secondary to sepsis. Continue oral Cardizem, metoprolol, Eliquis, amiodarone. 3. Hypertension: Continue metoprolol, Cardizem. 4. CHF: Continue Bumex. 5. COPD: Not in exacerbation. Continue duo nebs, supplemental oxygen. 6. Lymphoma: Currently on chemotherapy, most recent treatment 2 weeks ago. Appreciate oncology recommendations. Chemotherapy on hold secondary to infection. Follow-up as outpatient with Dr. Moncada. 7. BPH: Continue Flomax. 8. Hypokalemia: Supplement potassium. 9. DVT prophylaxis: Eliquis. Discharge Planning Discharge to SNF once insurance authorization is finalized. Vinnie Contreras MD Jul 23, 2016 13:03
[2016-07-23] MEDS: PRAVASTATIN SOD 40 MG TAB PO SCH (22:00)
[2016-07-23] MEDS: TAMSULOSIN HCL 0.4 MG CAP PO SCH (22:00)
[2016-07-23] MEDS: ZOLPIDEM TARTRATE 5 MG TAB PO SCH (22:00)
[2016-07-24 00:40] VITALS: BP 93/61; PULSE 94; RESP 20; TEMP 97.6; O2SAT 95
[2016-07-24 04:46] VITALS: BP 106/65; PULSE 94; RESP 20; TEMP 97.2; O2SAT 95
[2016-07-24 08:00] VITALS: BP 118/61; PULSE 95; RESP 18; TEMP 96.5; O2SAT 93
[2016-07-24] MEDS: CEFUROXIME AXETIL 500 MG TAB PO SCH (09:36)
[2016-07-24] MEDS: DILTIAZEM-CD 180 MG CAP ER PO SCH (09:36)
[2016-07-24] MEDS: ACYCLOVIR 200 MG CAP PO SCH (09:37)
[2016-07-24] MEDS: METOPROLOL SUCCINATE 25 MG EXTENDED RELEASE TAB PO SCH (09:37)
[2016-07-24] MEDS: APIXABAN 5 MG TABLET PO SCH (09:37)
[2016-07-24] MEDS: SODIUM CHLORIDE 0.9% FLUSH 5 ML FLUSH FLUSH SCH (09:37)
[2016-07-24] MEDS: AMIODARONE 200 MG TAB PO SCH (09:37)
[2016-07-24] MEDS: BUMETANIDE 1 MG TAB PO SCH (09:37)
--- NOTE | 2016-07-24 10:48 | HHI.PR ---
Subjective Remarks Awaiting insurance authorization for SNF placement. Patient has no complaints this morning. Objective Vitals Vital Signs Date Time Temp Pulse Resp B/P Pulse Ox O2 Delivery O2 Flow Rate FiO2 07/24/16 08:00 96.5 95 18 118/61 93 07/24/16 04:46 97.2 94 20 106/65 95 07/24/16 00:40 97.6 94 20 93/61 95 07/23/16 18:02 Nasal Cannula 4.00 07/23/16 17:00 97.7 88 16 107/60 94 07/23/16 16:25 97.8 76 20 95 07/23/16 16:25 106/63 07/23/16 12:00 97.4 78 18 108/60 92 I/O 07/23/16 07/23/16 07/23/16 07/24/16 07/24/16 07/24/16 07:00 15:00 23:00 07:00 15:00 23:00 Intake Total 120 ml 480 ml 1080 ml Output Total 800 ml 870 ml Balance 120 ml -320 ml 210 ml Intake Oral 120 ml 480 ml 1080 ml Output Urine Total 800 ml 870 ml # Voids 1 1 # Bowel Movements 0 2 0 Result Diagram: 07/22/16 0442 Imaging Last Impressions Chest X-Ray 07/20/16 0000 Signed Impressions: Service Date/Time: Wednesday, July 20, 2016 18:18 - CONCLUSION: 1. Improvement in left lung consolidation since July 15. Small left effusion. Ti Cornejo MD Head CT 07/15/16 195 Signed Impressions: Service Date/Time: Friday, July 15, 2016 20:31 - CONCLUSION: 1. No acute intracranial abnormalities. Moderate ischemic changes in the periventricular white matter. Ti Cornejo MD Abdomen/Pelvis CT 07/15/16 180 Signed Impressions: Service Date/Time: Friday, July 15, 2016 19:25 - CONCLUSION: 1. Retroperitoneal, mesenteric and pelvic adenopathy as above. There is also extensive stranding of fat in the retroperitoneum extending into the pelvis which can be seen with lymphoma. Retroperitoneal hemorrhage considered less likely. Aorta is atherosclerotic but intact without aneurysm. 2. Adenopathy is a new finding since the 2010 exam. 3. Loculated fluid and pleural thickening left lung base. 4. Probable gallstones in gallbladder. Small pericardial effusion. 5. Previous left hip replacement. Ti Cornejo MD Hip and Pelvis X-Ray 07/15/16 0000 Signed Impressions: Service Date/Time: Friday, July 15, 2016 19:19 - CONCLUSION: 1. Previous total left hip replacement. No acute findings. Ti Cornejo MD Objective Remarks General: No acute distress. Heart: Regular rate and rhythm. No murmur. Lungs: Clear to auscultation. Breathing is nonlabored. Abdomen: Soft, nontender, nondistended. Extremities: No lower extremity edema. Psych: Alert and oriented. Answers questions appropriately. Procedures None Urinary Catheter: No Vascular Central Line Catheter: No A/P Problem List: (1) Sepsis due to pneumonia ICD Code: J18.9 Status: Resolved (2) Lymphoma ICD Code: C85.90 Status: Chronic (3) Atrial fibrillation with RVR ICD Code: I48.91 Status: Acute (4) Hypoxemia ICD Code: R09.02 Status: Acute Assessment and Plan Reviewed/updated 07/24/16. Discharge to SNF when insurance authorization is obtained. 1. Dyspnea: Secondary to pneumonia with sepsis. Continue antibiotics. Patient is immunocompromised. Had chemotherapy 2 weeks ago. Leukocytosis resolved. 2. Atrial fibrillation with RVR: Improved. Likely secondary to sepsis. Continue oral Cardizem, metoprolol, Eliquis, amiodarone. 3. Hypertension: Continue metoprolol, Cardizem. 4. CHF: Continue Bumex. 5. COPD: Not in exacerbation. Continue duo nebs, supplemental oxygen. 6. Lymphoma: Currently on chemotherapy, most recent treatment 2 weeks ago. Appreciate oncology recommendations. Chemotherapy on hold secondary to infection. Follow-up as outpatient with Dr. Moncada. 7. BPH: Continue Flomax. 8. Hypokalemia: Received potassium supplementation. 9. DVT prophylaxis: Eliquis. Discharge Planning Discharge to SNF once insurance authorization is finalized. Vinnie Contreras MD Jul 24, 2016 10:48
[2016-07-24 12:00] VITALS: BP_SYST 121; BP_SYST 94; BP_DIAS 53; BP_DIAS 60; PULSE 101; PULSE 69; RESP 18; RESP 19; TEMP 96.3; TEMP 98.5; O2SAT 93; O2SAT 96
[2016-07-24 12:53] VITALS: O2SAT 97
== END 2016-07-24 14:00 | DRG 871 ==
LOC: NEPE 17:53 → NEDA 20:54 → NEDH 07-16 01:43 → HCIS 07-16 18:00 → N06B 07-20 19:06
PROVIDERS: ADMIT Family Medicine; ATTEND Family Medicine
DX: A41.9 Sepsis, unspecified organism (principal); J18.9 Pneumonia, unspecified organism; C85.90 Non-Hodgkin lymphoma, unspecified, unspecified site; I50.22 Chronic systolic (congestive) heart failure; I48.91 Unspecified atrial fibrillation; J44.0 Chronic obstructive pulmonary disease with (acute) lower respiratory infection; I10 Essential (primary) hypertension; E78.5 Hyperlipidemia, unspecified; Z79.02 Long term (current) use of antithrombotics/antiplatelets; N40.0 Benign prostatic hyperplasia without lower urinary tract symptoms; R09.02 Hypoxemia; Z92.21 Personal history of antineoplastic chemotherapy; G47.30 Sleep apnea, unspecified; Z96.642 Presence of left artificial hip joint; Z91.14 Patient's other noncompliance with medication regimen; F41.9 Anxiety disorder, unspecified; Z87.891 Personal history of nicotine dependence; E87.6 Hypokalemia
CPT/HCPCS: 36600; 70450; 71010; 71020; 73502; 74177; 80048; 80076; 81001; 82550; 82552; 82805; 83605; 83690; 83735; 83880; 84484; 85025; 85610; 85730; 87040; 87070; 87205; 93005; 94150; 94640; 94664; 94667; 94668; 96374; 96375; J0456; J0692; J0696; J7050; J7608; Q9967